=== PATIENT | female | born 1965 | race Two or more races ===

== ENCOUNTER 2017-09-07 21:20 | Emergency (ER) | payer MEDICAID ==
[~2017-09-07] VITALS: Ht 167.6 cm; Wt 86.2 kg
[2017-09-08 00:22] VITALS: BP 160/95
== END 2017-09-08 02:08 | disposition home or self-care (01) ==
LOC: ER 21:20
DX: K02.9 Dental caries, unspecified (principal)

== ENCOUNTER 2021-04-01 11:15 | Inpatient (IN) | payer MEDICAID ==
[~2021-04-01] VITALS: Ht 167.6 cm; Wt 5.0 kg
[2021-04-01] MEDS ORDERED: methylPREDNISolone SOD SUCC 125 MG/2 ML VL IV ONE (11:30)
[2021-04-01] MEDS ORDERED: NITROGLYCERIN 0.4 MG SL TAB SL PRN (12:15)
[2021-04-01] MEDS ORDERED: ACETAMINOPHEN 325 MG TAB PO PRN (12:15)
[2021-04-01] MEDS ORDERED: MORPHINE SULFATE 4 MG/ML SYR/VIAL IV PRN (12:15)
[2021-04-01] MEDS ORDERED: MORPHINE SULFATE INJECTION 2 MG/ML SYRG IV PRN (12:15)
[2021-04-01 12:18] LABS: Basophils # (auto) 0 10 ^3/uL (0-0.2); Basophils % (auto) 0.2 % (0.0-2.0); Eosinophils # (auto) 0 10 ^3/uL (0-0.8); Hematocrit 42.3 % (36.0-46.0); Hemoglobin 14.3 g/dL (12.2-16.2); Lymphocytes % (auto) 13.6 % (10.0-50.0); Mean Corpuscular Hemoglobin 29.3 pg (28.0-32.0); Mean Corpuscular Hgb Conc. 33.8 g/dL (32.0-36.0); Mean Corpuscular Volume 86.6 fL (80.0-100.0); Monocytes # (auto) 0.5 10 ^3/uL (0-1.3); Monocytes % (auto) 6.4 % (0.0-12.0); Neutrophils # (auto) 5.8 10 ^3/uL (1.6-8.6); Neutrophils % (auto) 79.8 % (37.0-80.0); Red Blood Cells 4.89 10^6/uL (4.0-5.20); Red Cell Distribution Width 14.5 % (11.8-14.3); White Blood Cell 7.2 10^3/uL (4.4-10.8)
[2021-04-01] MEDS ORDERED: ACETAMINOPHEN 325 MG TAB PO ONE (12:30)
[2021-04-01 12:43] LABS: Potassium 3.8 mmol/L (3.5-5.1)
[2021-04-01 12:53] LABS: Albumin 3.1 g/dL (3.4-5.0); BUN/Creatinine Ratio 16.1; Bilirubin, Total 0.5 mg/dL (0.2-1.0); CRP High Sensitivity 1.01 mg/dL (< 0.3); Total Protein 7.5 g/dL (6.4-8.2)
[2021-04-01] MEDS ORDERED: REMDESIVIR PER PHARMACY 0 ML IV SCH (15:15)
[2021-04-01 15:25] VITALS: BP 106/55
[2021-04-01] MEDS ORDERED: REMDESIVIR 200 MG in NS 210ml LOADING DOSE ADULT IV ONE (16:00)
[2021-04-01 16:29] LABS: Urine Bacteria FEW /hpf (None Seen); Urine Blood Negative /uL (Negative); Urine Hyaline Cast FEW /lpf (0 - 2); Urine Specific Gravity 1.013 (1.001-1.035); Urine WBC 4 /hpf (0 - 5)
[2021-04-01] MEDS: PIPERACILLIN-TAZOB 3.375GM 100 ML IV SCH (17:49)
[2021-04-01] MEDS: BUDESONIDE (INHALATION) 180 MCG IH IN SCH (19:37)
[2021-04-01] MEDS: HYDROcodone-ACET 5/325MG TAB PO PRN (20:01)
[2021-04-01] MEDS: ENOXAPARIN SOD 40 MG/0.4 ML SYRINGE SC SCH (22:00)
[2021-04-02] MEDS: PIPERACILLIN-TAZOB 3.375GM 100 ML IV SCH ×4 (06:00→18:54)
[2021-04-02] MEDS: ALBUTEROL SULF HFA 90MCG INH 200DOSE IN PRN (06:36)
[2021-04-02] MEDS: BUDESONIDE (INHALATION) 180 MCG IH IN SCH ×2 (06:37→22:21)
[2021-04-02 06:52] LABS: Basophils # (auto) 0 10 ^3/uL (0-0.2); Basophils % (auto) 0.1 % (0.0-2.0); Eosinophils # (auto) 0 10 ^3/uL (0-0.8); Hematocrit 41.8 % (36.0-46.0); Hemoglobin 14.5 g/dL (12.2-16.2); Lymphocytes # (auto) 0.7 10 ^3/uL (0.4-5.4); Lymphocytes % (auto) 11.7 % (10.0-50.0); Mean Corpuscular Hemoglobin 30.4 pg (28.0-32.0); Mean Corpuscular Hgb Conc. 34.8 g/dL (32.0-36.0); Mean Corpuscular Volume 87.3 fL (80.0-100.0); Monocytes # (auto) 0.4 10 ^3/uL (0-1.3); Monocytes % (auto) 7.3 % (0.0-12.0); Neutrophils # (auto) 4.7 10 ^3/uL (1.6-8.6); Neutrophils % (auto) 80.9 % (37.0-80.0); Red Blood Cells 4.78 10^6/uL (4.0-5.20); Red Cell Distribution Width 14.8 % (11.8-14.3); White Blood Cell 5.8 10^3/uL (4.4-10.8)
[2021-04-02 06:56] LABS: Albumin 2.8 g/dL (3.4-5.0); Calcium 8.7 mg/dL (8.5-10.1); Potassium 4.2 mmol/L (3.5-5.1)
[2021-04-02 07:00] LABS: BUN/Creatinine Ratio 20.8; Bilirubin, Total 0.4 mg/dL (0.2-1.0); Total Protein 7.3 g/dL (6.4-8.2)
[2021-04-02] MEDS: HYDROcodone-ACET 5/325MG TAB PO PRN ×2 (07:01→20:04)
[2021-04-02] MEDS ORDERED: ENOXAPARIN SOD 40 MG/0.4 ML SYRINGE SC SCH (10:00)
[2021-04-02] MEDS: ASCORBIC ACID 1,000 MG TAB PO SCH (11:06)
[2021-04-02] MEDS: CHOLECALCIFEROL (VITD3) 2,000 UNIT CAP/TAB PO SCH (11:06)
[2021-04-02] MEDS: AZITHROMYCIN 500MG/ 250ML 250 ML IV SCH (11:06)
[2021-04-02] MEDS: ZINC SULFATE 220mg CAP or TAB PO SCH (11:06)
[2021-04-02] MEDS: DexAMETHasone SOD PHOS 10MG/1ML VIAL INJ IV SCH (11:06)
[2021-04-02] MEDS: ENOXAPARIN SOD 40 MG/0.4 ML SYRINGE SC SCH ×2 (11:07→21:40)
[2021-04-02 12:00] VITALS: BP 113/72
[2021-04-02 14:01] VITALS: BP 113/72
[2021-04-02] MEDS ORDERED: METF-370 PO (14:29)
[2021-04-02] MEDS ORDERED: LEVO25TA6 PO (14:29)
[2021-04-02] MEDS ORDERED: AMLO-489 PO (14:29)
[2021-04-02] MEDS ORDERED: CHOL4POW4 PO (14:29)
[2021-04-02] MEDS ORDERED: PROP80CA40 PO (14:29)
[2021-04-02] MEDS: REMDESIVIR 100mg 100 MG in SODIUM CHL 0.9% 230 ML IV SCH (15:33)
[2021-04-02 16:00] VITALS: BP 113/69
[2021-04-02 20:00] VITALS: BP 122/75
[2021-04-02 21:00] VITALS: BP 122/75
[2021-04-03] MEDS: PIPERACILLIN-TAZOB 3.375GM 100 ML IV SCH ×4 (04:21→22:28)
[2021-04-03 05:00] VITALS: BP 119/75
[2021-04-03] MEDS: ALBUTEROL SULF HFA 90MCG INH 200DOSE IN PRN ×2 (07:25→23:14)
[2021-04-03] MEDS: BUDESONIDE (INHALATION) 180 MCG IH IN SCH ×2 (07:25→21:50)
[2021-04-03 09:00] VITALS: BP 122/75
[2021-04-03] MEDS: ZINC SULFATE 220mg CAP or TAB PO SCH (09:26)
[2021-04-03] MEDS: CHOLECALCIFEROL (VITD3) 2,000 UNIT CAP/TAB PO SCH (09:26)
[2021-04-03] MEDS: HYDROcodone-ACET 5/325MG TAB PO PRN ×2 (09:26→22:29)
[2021-04-03] MEDS: AZITHROMYCIN 500MG/ 250ML 250 ML IV SCH (09:26)
[2021-04-03] MEDS: ASCORBIC ACID 1,000 MG TAB PO SCH (09:26)
[2021-04-03] MEDS: DexAMETHasone SOD PHOS 10MG/1ML VIAL INJ IV SCH (09:27)
[2021-04-03] MEDS: ENOXAPARIN SOD 40 MG/0.4 ML SYRINGE SC SCH ×2 (09:27→22:28)
[2021-04-03 13:00] VITALS: BP 126/78
[2021-04-03] MEDS: PANTOPRAZOLE 40 MG/10 ML VIAL INJ IV SCH ×2 (14:27→22:28)
[2021-04-03] MEDS: REMDESIVIR 100mg 100 MG in SODIUM CHL 0.9% 230 ML IV SCH (16:20)
[2021-04-03 17:00] VITALS: BP 131/89
[2021-04-03 20:00] VITALS: BP 135/85
[2021-04-03 22:00] VITALS: BP 135/85
[2021-04-03] MEDS: DOCUSATE SOD 100 MG CAP PO SCH (22:28)
[2021-04-04] MEDS: PIPERACILLIN-TAZOB 3.375GM 100 ML IV SCH ×4 (04:14→21:21)
[2021-04-04 05:00] VITALS: BP 120/77
[2021-04-04 06:15] LABS: Basophils # (auto) 0 10 ^3/uL (0-0.2); Basophils % (auto) 0.3 % (0.0-2.0); Eosinophils # (auto) 0 10 ^3/uL (0-0.8); Hematocrit 40.8 % (36.0-46.0); Hemoglobin 13.8 g/dL (12.2-16.2); Mean Corpuscular Hemoglobin 29.4 pg (28.0-32.0); Mean Corpuscular Volume 86.6 fL (80.0-100.0); Monocytes # (auto) 0.5 10 ^3/uL (0-1.3); Monocytes % (auto) 10.9 % (0.0-12.0); Neutrophils # (auto) 3.4 10 ^3/uL (1.6-8.6); Neutrophils % (auto) 68.8 % (37.0-80.0); Red Blood Cells 4.71 10^6/uL (4.0-5.20); Red Cell Distribution Width 14.6 % (11.8-14.3); White Blood Cell 4.9 10^3/uL (4.4-10.8)
[2021-04-04 06:29] LABS: BUN/Creatinine Ratio 24.2; Calcium 8.4 mg/dL (8.5-10.1); Potassium 4.2 mmol/L (3.5-5.1)
[2021-04-04] MEDS: BUDESONIDE (INHALATION) 180 MCG IH IN SCH ×2 (07:12→20:32)
[2021-04-04] MEDS: ALBUTEROL SULF HFA 90MCG INH 200DOSE IN PRN ×2 (07:12→20:33)
[2021-04-04] MEDS: AZITHROMYCIN 500MG/ 250ML 250 ML IV SCH (07:58)
[2021-04-04] MEDS: ZINC SULFATE 220mg CAP or TAB PO SCH (08:53)
[2021-04-04] MEDS: DexAMETHasone SOD PHOS 10MG/1ML VIAL INJ IV SCH (08:53)
[2021-04-04] MEDS: PANTOPRAZOLE 40 MG/10 ML VIAL INJ IV SCH ×2 (08:53→21:21)
[2021-04-04] MEDS: DOCUSATE SOD 100 MG CAP PO SCH ×2 (08:56→21:21)
[2021-04-04] MEDS: ASCORBIC ACID 1,000 MG TAB PO SCH (08:56)
[2021-04-04] MEDS: CHOLECALCIFEROL (VITD3) 2,000 UNIT CAP/TAB PO SCH (08:56)
[2021-04-04] MEDS: ENOXAPARIN SOD 40 MG/0.4 ML SYRINGE SC SCH ×2 (08:56→21:21)
[2021-04-04] MEDS: HYDROcodone-ACET 5/325MG TAB PO PRN ×2 (08:57→20:13)
[2021-04-04 09:00] VITALS: BP 125/86
[2021-04-04] MEDS: ONDANSETRON HCL 4 MG/2 ML VIAL IV PRN (09:49)
[2021-04-04] MEDS ORDERED: FUROSEMIDE 40 MG/4 ML VIAL IV ONE (12:45)
[2021-04-04 13:00] VITALS: BP 133/87
[2021-04-04] MEDS: REMDESIVIR 100mg 100 MG in SODIUM CHL 0.9% 230 ML IV SCH (15:14)
[2021-04-04 17:00] VITALS: BP 117/83
[2021-04-04 21:55] VITALS: BP 134/88
[2021-04-04 22:10] VITALS: BP 134/88
[2021-04-05 01:15] VITALS: BP 134/88
[2021-04-05] MEDS: PIPERACILLIN-TAZOB 3.375GM 100 ML IV SCH ×5 (03:54→22:06)
[2021-04-05 04:44] VITALS: BP 127/86
[2021-04-05 06:49] LABS: Basophils # (auto) 0 10 ^3/uL (0-0.2); Basophils % (auto) 0.8 % (0.0-2.0); Eosinophils # (auto) 0 10 ^3/uL (0-0.8); Eosinophils % (auto) 0.2 % (0.0-7.0); Hematocrit 40.9 % (36.0-46.0); Lymphocytes # (auto) 1.7 10 ^3/uL (0.4-5.4); Lymphocytes % (auto) 29.1 % (10.0-50.0); Mean Corpuscular Hemoglobin 29.8 pg (28.0-32.0); Mean Corpuscular Hgb Conc. 34.2 g/dL (32.0-36.0); Monocytes # (auto) 0.5 10 ^3/uL (0-1.3); Monocytes % (auto) 8.4 % (0.0-12.0); Neutrophils # (auto) 3.6 10 ^3/uL (1.6-8.6); Neutrophils % (auto) 61.5 % (37.0-80.0); Nucleated Red Blood Cells % 0.2 %; Red Blood Cells 4.69 10^6/uL (4.0-5.20); Red Cell Distribution Width 14.3 % (11.8-14.3); White Blood Cell 5.8 10^3/uL (4.4-10.8)
[2021-04-05 06:56] LABS: Potassium 3.6 mmol/L (3.5-5.1)
[2021-04-05] MEDS: ALBUTEROL SULF HFA 90MCG INH 200DOSE IN PRN ×2 (07:01→19:31)
[2021-04-05] MEDS: BUDESONIDE (INHALATION) 180 MCG IH IN SCH ×2 (07:01→19:27)
[2021-04-05 07:04] LABS: Albumin 2.5 g/dL (3.4-5.0); BUN/Creatinine Ratio 20.3; Bilirubin, Total 0.4 mg/dL (0.2-1.0); Calcium 8.5 mg/dL (8.5-10.1); Total Protein 6.5 g/dL (6.4-8.2)
[2021-04-05 09:00] VITALS: BP 123/83
[2021-04-05] MEDS ORDERED: FUROSEMIDE 20 MG/2 ML VIAL IV ONE (09:00)
[2021-04-05] MEDS: DexAMETHasone SOD PHOS 10MG/1ML VIAL INJ IV SCH (11:30)
[2021-04-05] MEDS: PANTOPRAZOLE 40 MG/10 ML VIAL INJ IV SCH ×2 (11:30→22:06)
[2021-04-05] MEDS: amLODIPine BESYLATE 5 MG TAB PO SCH (11:31)
[2021-04-05] MEDS: DOCUSATE SOD 100 MG CAP PO SCH ×2 (11:31→22:00)
[2021-04-05] MEDS: ZINC SULFATE 220mg CAP or TAB PO SCH (11:31)
[2021-04-05] MEDS: LORATADINE 10 MG TAB PO SCH (11:31)
[2021-04-05] MEDS: ASCORBIC ACID 1,000 MG TAB PO SCH (11:31)
[2021-04-05] MEDS: AZITHROMYCIN 500MG/ 250ML 250 ML IV SCH (11:31)
[2021-04-05] MEDS: ENOXAPARIN SOD 40 MG/0.4 ML SYRINGE SC SCH ×2 (11:32→22:09)
[2021-04-05] MEDS: CHOLECALCIFEROL (VITD3) 2,000 UNIT CAP/TAB PO SCH (11:32)
[2021-04-05] MEDS: ALPRAZolam 0.25 MG TAB PO PRN (11:35)
[2021-04-05 13:00] VITALS: BP 124/84
[2021-04-05] MEDS: ONDANSETRON HCL 4 MG/2 ML VIAL IV PRN ×2 (14:14→20:37)
[2021-04-05 17:00] VITALS: BP 115/75
[2021-04-05] MEDS: REMDESIVIR 100mg 100 MG in SODIUM CHL 0.9% 230 ML IV SCH (17:36)
[2021-04-05] MEDS: HYDROcodone-ACET 5/325MG TAB PO PRN (20:36)
[2021-04-05 22:00] VITALS: BP 121/81
[2021-04-05] MEDS: TEMAZEPAM 15 MG CAP PO PRN (22:05)
[2021-04-05] MEDS ORDERED: DEXTROSE (50%) 50ML SYRG IV PRN (22:30)
[2021-04-05] MEDS ORDERED: InsuLIN REG 1unit/0.01ml Soln (100units/ml) SC ONE (22:45)
[2021-04-06] MEDS: ALPRAZolam 0.25 MG TAB PO PRN ×2 (01:00→22:00)
[2021-04-06] MEDS: PIPERACILLIN-TAZOB 3.375GM 100 ML IV SCH ×4 (04:27→21:23)
[2021-04-06 05:00] VITALS: BP 134/93
[2021-04-06] MEDS: ACCU-CHEK COMFORT CURVE STRIP VI SCH ×4 (06:40→21:15)
[2021-04-06] MEDS: InsuLIN REG 1unit/0.01ml Soln (100units/ml) SC SCH ×4 (06:43→21:26)
[2021-04-06 09:00] VITALS: BP 128/87
[2021-04-06] MEDS: BUDESONIDE (INHALATION) 180 MCG IH IN SCH ×2 (09:27→22:30)
[2021-04-06] MEDS: ALBUTEROL SULF HFA 90MCG INH 200DOSE IN PRN ×2 (09:27→22:30)
[2021-04-06] MEDS: AZITHROMYCIN 500MG/ 250ML 250 ML IV SCH (09:40)
[2021-04-06] MEDS: DexAMETHasone SOD PHOS 10MG/1ML VIAL INJ IV SCH (09:40)
[2021-04-06] MEDS: ENOXAPARIN SOD 40 MG/0.4 ML SYRINGE SC SCH ×2 (09:41→21:23)
[2021-04-06] MEDS: LORATADINE 10 MG TAB PO SCH (09:41)
[2021-04-06] MEDS: ASCORBIC ACID 1,000 MG TAB PO SCH (09:41)
[2021-04-06] MEDS: CHOLECALCIFEROL (VITD3) 2,000 UNIT CAP/TAB PO SCH (09:41)
[2021-04-06] MEDS: PANTOPRAZOLE 40 MG/10 ML VIAL INJ IV SCH ×2 (09:41→21:23)
[2021-04-06] MEDS: ZINC SULFATE 220mg CAP or TAB PO SCH (09:41)
[2021-04-06] MEDS: DOCUSATE SOD 100 MG CAP PO SCH ×2 (09:42→21:22)
[2021-04-06] MEDS: amLODIPine BESYLATE 5 MG TAB PO SCH (09:42)
[2021-04-06] MEDS: HYDROcodone-ACET 5/325MG TAB PO PRN (11:55)
[2021-04-06] MEDS: ONDANSETRON HCL 4 MG/2 ML VIAL IV PRN (11:56)
[2021-04-06 13:30] VITALS: BP 127/81
[2021-04-06 17:18] VITALS: BP 130/85
[2021-04-06 22:21] VITALS: BP 122/80
[2021-04-07] MEDS: PIPERACILLIN-TAZOB 3.375GM 100 ML IV SCH ×4 (04:02→21:42)
[2021-04-07 05:25] VITALS: BP 130/94
[2021-04-07] MEDS: ACCU-CHEK COMFORT CURVE STRIP VI SCH ×4 (06:05→21:33)
[2021-04-07] MEDS: InsuLIN REG 1unit/0.01ml Soln (100units/ml) SC SCH ×4 (06:06→21:46)
[2021-04-07] MEDS: ONDANSETRON HCL 4 MG/2 ML VIAL IV PRN ×2 (06:59→21:42)
[2021-04-07] MEDS: HYDROcodone-ACET 5/325MG TAB PO PRN ×2 (06:59→21:42)
[2021-04-07] MEDS: BUDESONIDE (INHALATION) 180 MCG IH IN SCH ×2 (08:10→20:45)
[2021-04-07] MEDS: ALBUTEROL SULF HFA 90MCG INH 200DOSE IN PRN ×2 (08:10→21:13)
[2021-04-07 09:00] VITALS: BP 137/77
[2021-04-07] MEDS: DexAMETHasone SOD PHOS 10MG/1ML VIAL INJ IV SCH (09:19)
[2021-04-07] MEDS: PANTOPRAZOLE 40 MG/10 ML VIAL INJ IV SCH ×2 (09:20→21:41)
[2021-04-07] MEDS: DOCUSATE SOD 100 MG CAP PO SCH ×2 (09:20→21:42)
[2021-04-07] MEDS: ZINC SULFATE 220mg CAP or TAB PO SCH (09:20)
[2021-04-07] MEDS: LORATADINE 10 MG TAB PO SCH (09:20)
[2021-04-07] MEDS: ASCORBIC ACID 1,000 MG TAB PO SCH (09:21)
[2021-04-07] MEDS: CHOLECALCIFEROL (VITD3) 2,000 UNIT CAP/TAB PO SCH (09:21)
[2021-04-07] MEDS: amLODIPine BESYLATE 5 MG TAB PO SCH (09:21)
[2021-04-07] MEDS: ENOXAPARIN SOD 40 MG/0.4 ML SYRINGE SC SCH ×2 (09:21→21:42)
[2021-04-07 13:00] VITALS: BP 134/82
[2021-04-07] MEDS: ALPRAZolam 0.25 MG TAB PO PRN (15:18)
[2021-04-07 17:00] VITALS: BP 124/75
[2021-04-07] MEDS: SALINE 0.65 % NASAL SPRAY 45ML BOTTLE EACHNOSTRI SCH ×2 (17:39→21:41)
[2021-04-07 22:00] VITALS: BP 130/76
[2021-04-08 00:25] VITALS: BP 124/75
[2021-04-08] MEDS: TEMAZEPAM 15 MG CAP PO PRN (00:34)
[2021-04-08] MEDS: PIPERACILLIN-TAZOB 3.375GM 100 ML IV SCH ×4 (04:10→21:30)
[2021-04-08 05:00] VITALS: BP 135/94
[2021-04-08 06:10] LABS: Basophils # (auto) 0 10 ^3/uL (0-0.2); Basophils % (auto) 0.4 % (0.0-2.0); Eosinophils # (auto) 0 10 ^3/uL (0-0.8); Eosinophils % (auto) 0.6 % (0.0-7.0); Hematocrit 43.3 % (36.0-46.0); Hemoglobin 15.1 g/dL (12.2-16.2); Lymphocytes # (auto) 1.6 10 ^3/uL (0.4-5.4); Lymphocytes % (auto) 22.2 % (10.0-50.0); Mean Corpuscular Hemoglobin 29.8 pg (28.0-32.0); Mean Corpuscular Hgb Conc. 34.8 g/dL (32.0-36.0); Mean Corpuscular Volume 85.9 fL (80.0-100.0); Monocytes # (auto) 0.6 10 ^3/uL (0-1.3); Monocytes % (auto) 8.8 % (0.0-12.0); Nucleated Red Blood Cells % 0.1 %; Red Blood Cells 5.04 10^6/uL (4.0-5.20); Red Cell Distribution Width 14.4 % (11.8-14.3); White Blood Cell 7.3 10^3/uL (4.4-10.8)
[2021-04-08 06:24] LABS: Albumin 2.9 g/dL (3.4-5.0); Calcium 8.9 mg/dL (8.5-10.1); Potassium 3.6 mmol/L (3.5-5.1)
[2021-04-08] MEDS: SALINE 0.65 % NASAL SPRAY 45ML BOTTLE EACHNOSTRI SCH ×4 (06:28→21:33)
[2021-04-08] MEDS: ACCU-CHEK COMFORT CURVE STRIP VI SCH ×4 (06:29→21:32)
[2021-04-08 06:30] LABS: BUN/Creatinine Ratio 16.4; Bilirubin, Total 0.4 mg/dL (0.2-1.0); CRP High Sensitivity 0.13 mg/dL (< 0.3); Total Protein 7.3 g/dL (6.4-8.2)
[2021-04-08] MEDS: InsuLIN REG 1unit/0.01ml Soln (100units/ml) SC SCH ×4 (06:31→22:01)
[2021-04-08] MEDS: ALPRAZolam 0.25 MG TAB PO PRN (06:32)
[2021-04-08] MEDS: ALBUTEROL SULF HFA 90MCG INH 200DOSE IN PRN (07:27)
[2021-04-08] MEDS: BUDESONIDE (INHALATION) 180 MCG IH IN SCH ×2 (07:27→22:00)
[2021-04-08 09:00] VITALS: BP 101/79
[2021-04-08] MEDS: DexAMETHasone SOD PHOS 10MG/1ML VIAL INJ IV SCH (09:52)
[2021-04-08] MEDS: PANTOPRAZOLE 40 MG/10 ML VIAL INJ IV SCH ×2 (09:53→21:30)
[2021-04-08] MEDS: ZINC SULFATE 220mg CAP or TAB PO SCH (09:53)
[2021-04-08] MEDS: LORATADINE 10 MG TAB PO SCH (09:53)
[2021-04-08] MEDS: DOCUSATE SOD 100 MG CAP PO SCH ×2 (09:53→21:30)
[2021-04-08] MEDS: amLODIPine BESYLATE 5 MG TAB PO SCH (09:53)
[2021-04-08] MEDS: CHOLECALCIFEROL (VITD3) 2,000 UNIT CAP/TAB PO SCH (09:54)
[2021-04-08] MEDS: ENOXAPARIN SOD 40 MG/0.4 ML SYRINGE SC SCH ×2 (09:54→21:31)
[2021-04-08] MEDS: ASCORBIC ACID 1,000 MG TAB PO SCH (09:54)
[2021-04-08 13:00] VITALS: BP 116/80
[2021-04-08 17:00] VITALS: BP 125/87
[2021-04-08] MEDS: HYDROcodone-ACET 5/325MG TAB PO PRN (20:24)
[2021-04-08] MEDS: ONDANSETRON HCL 4 MG/2 ML VIAL IV PRN (20:24)
[2021-04-08 22:00] VITALS: BP 128/85
[2021-04-09] MEDS: ALPRAZolam 0.25 MG TAB PO PRN (01:25)
[2021-04-09] MEDS: PIPERACILLIN-TAZOB 3.375GM 100 ML IV SCH ×4 (03:51→21:12)
[2021-04-09] MEDS: HYDROcodone-ACET 5/325MG TAB PO PRN (04:01)
[2021-04-09] MEDS: ONDANSETRON HCL 4 MG/2 ML VIAL IV PRN (04:01)
[2021-04-09 05:00] VITALS: BP 130/92
[2021-04-09] MEDS: InsuLIN REG 1unit/0.01ml Soln (100units/ml) SC SCH ×4 (06:11→21:29)
[2021-04-09] MEDS: SALINE 0.65 % NASAL SPRAY 45ML BOTTLE EACHNOSTRI SCH ×4 (06:11→21:11)
[2021-04-09] MEDS: ACCU-CHEK COMFORT CURVE STRIP VI SCH ×4 (06:11→21:11)
[2021-04-09 08:00] VITALS: BP 131/86
[2021-04-09 09:00] VITALS: BP 131/86
[2021-04-09] MEDS: PANTOPRAZOLE 40 MG/10 ML VIAL INJ IV SCH ×2 (10:05→21:11)
[2021-04-09] MEDS: CHOLECALCIFEROL (VITD3) 2,000 UNIT CAP/TAB PO SCH (10:06)
[2021-04-09] MEDS: DOCUSATE SOD 100 MG CAP PO SCH ×2 (10:06→21:11)
[2021-04-09] MEDS: ENOXAPARIN SOD 40 MG/0.4 ML SYRINGE SC SCH ×2 (10:06→21:11)
[2021-04-09] MEDS: amLODIPine BESYLATE 5 MG TAB PO SCH (10:07)
[2021-04-09] MEDS: ASCORBIC ACID 1,000 MG TAB PO SCH (10:07)
[2021-04-09] MEDS: LORATADINE 10 MG TAB PO SCH (10:07)
[2021-04-09] MEDS: ZINC SULFATE 220mg CAP or TAB PO SCH (10:07)
[2021-04-09] MEDS: DexAMETHasone SOD PHOS 10MG/1ML VIAL INJ IV SCH (10:31)
[2021-04-09] MEDS: ALBUTEROL SULF HFA 90MCG INH 200DOSE IN PRN ×2 (10:59→20:39)
[2021-04-09] MEDS: BUDESONIDE (INHALATION) 180 MCG IH IN SCH ×2 (10:59→20:38)
[2021-04-09 12:00] LABS: Basophils # (auto) 0 10 ^3/uL (0-0.2); Basophils % (auto) 0.4 % (0.0-2.0); Eosinophils # (auto) 0.1 10 ^3/uL (0-0.8); Eosinophils % (auto) 1.4 % (0.0-7.0); Hematocrit 43.1 % (36.0-46.0); Hemoglobin 14.9 g/dL (12.2-16.2); Lymphocytes # (auto) 1.4 10 ^3/uL (0.4-5.4); Lymphocytes % (auto) 17.5 % (10.0-50.0); Mean Corpuscular Hemoglobin 29.6 pg (28.0-32.0); Mean Corpuscular Hgb Conc. 34.4 g/dL (32.0-36.0); Mean Corpuscular Volume 85.9 fL (80.0-100.0); Monocytes # (auto) 0.7 10 ^3/uL (0-1.3); Neutrophils # (auto) 5.8 10 ^3/uL (1.6-8.6); Neutrophils % (auto) 71.7 % (37.0-80.0); Nucleated Red Blood Cells % 0.2 %; Red Blood Cells 5.02 10^6/uL (4.0-5.20); Red Cell Distribution Width 14.5 % (11.8-14.3); White Blood Cell 8.1 10^3/uL (4.4-10.8)
[2021-04-09 12:26] LABS: Albumin 2.9 g/dL (3.4-5.0); Calcium 8.9 mg/dL (8.5-10.1); Magnesium 2.4 mg/dL (1.6-2.6); Potassium 3.6 mmol/L (3.5-5.1)
[2021-04-09 12:31] LABS: BUN/Creatinine Ratio 13.5; Bilirubin, Total 0.6 mg/dL (0.2-1.0); CRP High Sensitivity 0.09 mg/dL (< 0.3); Total Protein 7.2 g/dL (6.4-8.2)
[2021-04-09 13:00] VITALS: BP 129/82
[2021-04-09 17:00] VITALS: BP 130/88
[2021-04-09] MEDS: PSEUDOEPHEDRINE HCL 30 MG TAB PO PRN ×2 (17:04→21:13)
[2021-04-09 22:00] VITALS: BP 133/80
[2021-04-10] MEDS: ONDANSETRON HCL 4 MG/2 ML VIAL IV PRN ×2 (01:13→22:31)
[2021-04-10] MEDS: HYDROcodone-ACET 5/325MG TAB PO PRN ×2 (01:13→21:27)
[2021-04-10] MEDS: ALPRAZolam 0.25 MG TAB PO PRN ×2 (02:13→13:55)
[2021-04-10] MEDS: PSEUDOEPHEDRINE HCL 30 MG TAB PO PRN ×3 (02:22→21:49)
[2021-04-10] MEDS: PIPERACILLIN-TAZOB 3.375GM 100 ML IV SCH ×4 (04:18→21:29)
[2021-04-10 05:00] VITALS: BP 137/94
[2021-04-10] MEDS: SALINE 0.65 % NASAL SPRAY 45ML BOTTLE EACHNOSTRI SCH ×4 (06:10→21:27)
[2021-04-10] MEDS: InsuLIN REG 1unit/0.01ml Soln (100units/ml) SC SCH ×4 (06:10→21:31)
[2021-04-10] MEDS: ACCU-CHEK COMFORT CURVE STRIP VI SCH ×4 (06:10→21:31)
[2021-04-10 08:00] VITALS: BP 150/107
[2021-04-10 09:00] VITALS: BP 150/107
[2021-04-10] MEDS: DexAMETHasone SOD PHOS 10MG/1ML VIAL INJ IV SCH (09:42)
[2021-04-10] MEDS: ZINC SULFATE 220mg CAP or TAB PO SCH (09:43)
[2021-04-10] MEDS: DOCUSATE SOD 100 MG CAP PO SCH ×2 (09:43→21:26)
[2021-04-10] MEDS: PANTOPRAZOLE 40 MG/10 ML VIAL INJ IV SCH ×2 (09:43→21:26)
[2021-04-10] MEDS: METOPROLOL TARTRATE 25 MG TAB PO SCH ×2 (09:44→21:29)
[2021-04-10] MEDS: amLODIPine BESYLATE 5 MG TAB PO SCH (09:45)
[2021-04-10] MEDS: ASCORBIC ACID 1,000 MG TAB PO SCH (09:45)
[2021-04-10] MEDS: CHOLECALCIFEROL (VITD3) 2,000 UNIT CAP/TAB PO SCH (09:45)
[2021-04-10] MEDS: ENOXAPARIN SOD 40 MG/0.4 ML SYRINGE SC SCH ×2 (09:45→21:28)
[2021-04-10 13:00] VITALS: BP 121/82
[2021-04-10 22:00] VITALS: BP 126/75
[2021-04-10] MEDS: BUDESONIDE (INHALATION) 180 MCG IH IN SCH (22:18)
[2021-04-11] VITALS (7 sets, daily range): BP systolic 114–127; BP diastolic 72–92
[2021-04-11] MEDS: PIPERACILLIN-TAZOB 3.375GM 100 ML IV SCH ×4 (04:25→21:26)
[2021-04-11] MEDS: SALINE 0.65 % NASAL SPRAY 45ML BOTTLE EACHNOSTRI SCH ×4 (05:44→21:26)
[2021-04-11] MEDS: PSEUDOEPHEDRINE HCL 30 MG TAB PO PRN ×3 (05:45→16:44)
[2021-04-11] MEDS: BUDESONIDE (INHALATION) 180 MCG IH IN SCH ×2 (05:56→22:07)
[2021-04-11] MEDS: InsuLIN REG 1unit/0.01ml Soln (100units/ml) SC SCH ×4 (06:25→21:30)
[2021-04-11] MEDS: ACCU-CHEK COMFORT CURVE STRIP VI SCH ×4 (06:26→21:29)
[2021-04-11] MEDS: PANTOPRAZOLE 40 MG/10 ML VIAL INJ IV SCH ×2 (10:22→21:26)
[2021-04-11] MEDS: ZINC SULFATE 220mg CAP or TAB PO SCH (10:22)
[2021-04-11] MEDS: DexAMETHasone SOD PHOS 10MG/1ML VIAL INJ IV SCH (10:22)
[2021-04-11] MEDS: DOCUSATE SOD 100 MG CAP PO SCH ×2 (10:23→21:27)
[2021-04-11] MEDS: METOPROLOL TARTRATE 25 MG TAB PO SCH ×2 (10:23→21:27)
[2021-04-11] MEDS: ENOXAPARIN SOD 40 MG/0.4 ML SYRINGE SC SCH ×2 (10:24→21:28)
[2021-04-11] MEDS: ASCORBIC ACID 1,000 MG TAB PO SCH (10:24)
[2021-04-11] MEDS: CHOLECALCIFEROL (VITD3) 2,000 UNIT CAP/TAB PO SCH (10:24)
[2021-04-11] MEDS: amLODIPine BESYLATE 5 MG TAB PO SCH (10:24)
[2021-04-11] MEDS: HYDROcodone-ACET 5/325MG TAB PO PRN ×2 (15:58→22:07)
[2021-04-11] MEDS: ONDANSETRON HCL 4 MG/2 ML VIAL IV PRN ×2 (16:07→22:06)
[2021-04-12] MEDS: PSEUDOEPHEDRINE HCL 30 MG TAB PO PRN ×2 (02:33→15:31)
[2021-04-12] MEDS: PIPERACILLIN-TAZOB 3.375GM 100 ML IV SCH ×4 (04:03→21:37)
[2021-04-12 05:00] VITALS: BP 127/89
[2021-04-12] MEDS: SALINE 0.65 % NASAL SPRAY 45ML BOTTLE EACHNOSTRI SCH ×4 (05:34→21:51)
[2021-04-12] MEDS: InsuLIN REG 1unit/0.01ml Soln (100units/ml) SC SCH ×5 (06:19→21:50)
[2021-04-12] MEDS: ACCU-CHEK COMFORT CURVE STRIP VI SCH ×4 (06:19→21:38)
[2021-04-12 08:00] VITALS: BP 138/95
[2021-04-12 09:00] VITALS: BP 138/95
[2021-04-12] MEDS: BUDESONIDE (INHALATION) 180 MCG IH IN SCH ×2 (09:27→21:28)
[2021-04-12] MEDS: DexAMETHasone SOD PHOS 10MG/1ML VIAL INJ IV SCH (09:33)
[2021-04-12] MEDS: PANTOPRAZOLE 40 MG/10 ML VIAL INJ IV SCH ×2 (09:33→21:32)
[2021-04-12] MEDS: ZINC SULFATE 220mg CAP or TAB PO SCH (09:33)
[2021-04-12] MEDS: METOPROLOL TARTRATE 25 MG TAB PO SCH ×2 (09:34→21:34)
[2021-04-12] MEDS: DOCUSATE SOD 100 MG CAP PO SCH ×2 (09:34→21:33)
[2021-04-12] MEDS: amLODIPine BESYLATE 5 MG TAB PO SCH (09:34)
[2021-04-12] MEDS: ENOXAPARIN SOD 40 MG/0.4 ML SYRINGE SC SCH ×2 (09:35→21:33)
[2021-04-12] MEDS: CHOLECALCIFEROL (VITD3) 2,000 UNIT CAP/TAB PO SCH (09:35)
[2021-04-12] MEDS: ASCORBIC ACID 1,000 MG TAB PO SCH (09:35)
[2021-04-12 10:44] LABS: Basophils # (auto) 0.1 10 ^3/uL (0-0.2); Basophils % (auto) 0.8 % (0.0-2.0); Eosinophils # (auto) 0.1 10 ^3/uL (0-0.8); Eosinophils % (auto) 1.3 % (0.0-7.0); Hematocrit 43.9 % (36.0-46.0); Hemoglobin 14.8 g/dL (12.2-16.2); Lymphocytes # (auto) 1.7 10 ^3/uL (0.4-5.4); Lymphocytes % (auto) 24.7 % (10.0-50.0); Mean Corpuscular Hemoglobin 29.7 pg (28.0-32.0); Mean Corpuscular Hgb Conc. 33.7 g/dL (32.0-36.0); Mean Corpuscular Volume 88.1 fL (80.0-100.0); Monocytes # (auto) 0.6 10 ^3/uL (0-1.3); Monocytes % (auto) 8.4 % (0.0-12.0); Neutrophils # (auto) 4.5 10 ^3/uL (1.6-8.6); Neutrophils % (auto) 64.8 % (37.0-80.0); Nucleated Red Blood Cells % 0.1 %; Red Blood Cells 4.98 10^6/uL (4.0-5.20); Red Cell Distribution Width 14.3 % (11.8-14.3)
[2021-04-12 11:23] LABS: Potassium 3.9 mmol/L (3.5-5.1)
[2021-04-12 11:37] LABS: Albumin 3.1 g/dL (3.4-5.0); BUN/Creatinine Ratio 13.3; Bilirubin, Total 0.6 mg/dL (0.2-1.0); Calcium 9.1 mg/dL (8.5-10.1); Magnesium 2.4 mg/dL (1.6-2.6); Total Protein 7.3 g/dL (6.4-8.2)
[2021-04-12 11:59] LABS: CRP High Sensitivity 0.208 mg/dL (< 0.3)
[2021-04-12 12:17] VITALS: BP 130/84
[2021-04-12 17:27] VITALS: BP 131/79
[2021-04-12] MEDS: HYDROcodone-ACET 5/325MG TAB PO PRN (21:34)
[2021-04-12] MEDS: ONDANSETRON HCL 4 MG/2 ML VIAL IV PRN (21:53)
[2021-04-13] VITALS (7 sets, daily range): BP systolic 118–141; BP diastolic 73–96
[2021-04-13] MEDS: PSEUDOEPHEDRINE HCL 30 MG TAB PO PRN ×2 (01:41→16:05)
[2021-04-13] MEDS: PIPERACILLIN-TAZOB 3.375GM 100 ML IV SCH ×4 (04:11→21:50)
[2021-04-13] MEDS: ALPRAZolam 0.25 MG TAB PO PRN (04:23)
[2021-04-13] MEDS: ACCU-CHEK COMFORT CURVE STRIP VI SCH ×4 (06:15→21:51)
[2021-04-13] MEDS: InsuLIN REG 1unit/0.01ml Soln (100units/ml) SC SCH ×4 (06:15→21:52)
[2021-04-13] MEDS: SALINE 0.65 % NASAL SPRAY 45ML BOTTLE EACHNOSTRI SCH ×4 (06:15→21:49)
[2021-04-13] MEDS: BUDESONIDE (INHALATION) 180 MCG IH IN SCH ×2 (06:16→20:04)
[2021-04-13] MEDS: DexAMETHasone SOD PHOS 10MG/1ML VIAL INJ IV SCH (09:02)
[2021-04-13] MEDS: PANTOPRAZOLE 40 MG/10 ML VIAL INJ IV SCH ×2 (09:02→21:49)
[2021-04-13] MEDS: ZINC SULFATE 220mg CAP or TAB PO SCH (09:02)
[2021-04-13] MEDS: DOCUSATE SOD 100 MG CAP PO SCH ×2 (09:02→21:50)
[2021-04-13] MEDS: METOPROLOL TARTRATE 25 MG TAB PO SCH ×2 (09:03→21:51)
[2021-04-13] MEDS: amLODIPine BESYLATE 5 MG TAB PO SCH (09:04)
[2021-04-13] MEDS: CHOLECALCIFEROL (VITD3) 2,000 UNIT CAP/TAB PO SCH (09:04)
[2021-04-13] MEDS: ASCORBIC ACID 1,000 MG TAB PO SCH (09:04)
[2021-04-13] MEDS: HYDROcodone-ACET 5/325MG TAB PO PRN (10:12)
[2021-04-14] MEDS: ALPRAZolam 0.25 MG TAB PO PRN (00:02)
[2021-04-14] MEDS: PIPERACILLIN-TAZOB 3.375GM 100 ML IV SCH ×2 (04:32→10:52)
[2021-04-14 04:39] VITALS: BP 129/80
[2021-04-14] MEDS: PSEUDOEPHEDRINE HCL 30 MG TAB PO PRN ×2 (05:58→13:15)
[2021-04-14] MEDS: SALINE 0.65 % NASAL SPRAY 45ML BOTTLE EACHNOSTRI SCH ×4 (06:05→21:33)
[2021-04-14] MEDS: ACCU-CHEK COMFORT CURVE STRIP VI SCH ×4 (06:06→21:26)
[2021-04-14] MEDS: InsuLIN REG 1unit/0.01ml Soln (100units/ml) SC SCH ×4 (06:06→21:27)
[2021-04-14 07:50] VITALS: BP 125/77
[2021-04-14] MEDS: BUDESONIDE (INHALATION) 180 MCG IH IN SCH ×2 (09:09→22:31)
[2021-04-14] MEDS: DexAMETHasone SOD PHOS 10MG/1ML VIAL INJ IV SCH (10:52)
[2021-04-14] MEDS: PANTOPRAZOLE 40 MG/10 ML VIAL INJ IV SCH ×2 (10:52→21:33)
[2021-04-14] MEDS: METOPROLOL TARTRATE 25 MG TAB PO SCH ×2 (10:53→21:32)
[2021-04-14] MEDS: DOCUSATE SOD 100 MG CAP PO SCH ×2 (10:53→21:32)
[2021-04-14] MEDS: ZINC SULFATE 220mg CAP or TAB PO SCH (10:53)
[2021-04-14] MEDS: CHOLECALCIFEROL (VITD3) 2,000 UNIT CAP/TAB PO SCH (10:54)
[2021-04-14] MEDS: amLODIPine BESYLATE 5 MG TAB PO SCH (10:54)
[2021-04-14 11:46] VITALS: BP 137/92
[2021-04-14] MEDS: ASCORBIC ACID 1,000 MG TAB PO SCH (12:21)
[2021-04-14 16:20] VITALS: BP 127/80
[2021-04-14] MEDS: HYDROcodone-ACET 5/325MG TAB PO PRN (21:33)
[2021-04-14] MEDS: ONDANSETRON HCL 4 MG/2 ML VIAL IV PRN (21:43)
[2021-04-14 22:00] VITALS: BP 134/89
[2021-04-15] MEDS: ALPRAZolam 0.25 MG TAB PO PRN (03:54)
[2021-04-15 05:17] VITALS: BP 127/81
[2021-04-15] MEDS: SALINE 0.65 % NASAL SPRAY 45ML BOTTLE EACHNOSTRI SCH ×3 (06:10→17:08)
[2021-04-15] MEDS: ACCU-CHEK COMFORT CURVE STRIP VI SCH ×3 (06:10→17:07)
[2021-04-15] MEDS: InsuLIN REG 1unit/0.01ml Soln (100units/ml) SC SCH ×3 (06:14→17:08)
[2021-04-15] MEDS: BUDESONIDE (INHALATION) 180 MCG IH IN SCH (06:22)
[2021-04-15] MEDS: DexAMETHasone SOD PHOS 10MG/1ML VIAL INJ IV SCH (08:18)
[2021-04-15] MEDS: PANTOPRAZOLE 40 MG/10 ML VIAL INJ IV SCH (08:18)
[2021-04-15] MEDS: ZINC SULFATE 220mg CAP or TAB PO SCH (08:19)
[2021-04-15] MEDS: DOCUSATE SOD 100 MG CAP PO SCH (08:19)
[2021-04-15] MEDS: METOPROLOL TARTRATE 25 MG TAB PO SCH (08:20)
[2021-04-15] MEDS: ASCORBIC ACID 1,000 MG TAB PO SCH (08:21)
[2021-04-15] MEDS: CHOLECALCIFEROL (VITD3) 2,000 UNIT CAP/TAB PO SCH (08:21)
[2021-04-15] MEDS: PSEUDOEPHEDRINE HCL 30 MG TAB PO PRN (08:22)
[2021-04-15] MEDS: amLODIPine BESYLATE 5 MG TAB PO SCH (08:37)
[2021-04-15 09:07] VITALS: BP 137/91
[2021-04-15] MEDS ORDERED: METOPROLOL TARTRATE 25 MG TAB PO ONE (11:45)
[2021-04-15 13:14] VITALS: BP 136/85
[2021-04-15 16:40] VITALS: BP 124/89
[2021-04-15] MEDS ORDERED: METOPROLOL TARTRATE 50 MG TAB PO SCH (22:00)
== END 2021-04-15 20:15 | disposition home or self-care (01) | DRG 137 ==
LOC: ER 11:15 → TELE 12:14 → TELE-EAST 04-02 11:00
PROVIDERS: ADMIT Internal Medicine; ATTEND Internal Medicine
PROC: XW033E5 Introduction of Remdesivir Anti-infective into Peripheral Vein, Percutaneous Approach, New Technology Group 5 (ICD-10-PCS; principal; 2021-04-01)
DX: U07.1 COVID-19 (principal); J96.01 Acute respiratory failure with hypoxia; J12.82 Pneumonia due to coronavirus disease 2019; E11.40 Type 2 diabetes mellitus with diabetic neuropathy, unspecified; I10 Essential (primary) hypertension; E03.9 Hypothyroidism, unspecified; E78.5 Hyperlipidemia, unspecified; E11.65 Type 2 diabetes mellitus with hyperglycemia; Z90.710 Acquired absence of both cervix and uterus
CPT/HCPCS: 36415; 36600; 71045; 80048; 80053; 81001; 82728; 82805; 82962; 83605; 83735; 84100; 85025; 85379; 86141; 87040; 87426; 93005; 94640; 96365; 96375; 97110; 97116; 97163; 97530; 99291; C9113; G0378; J1100; J1815; J2405; J2543

== ENCOUNTER 2022-07-14 10:47 | Inpatient (IN) | payer MEDICAID ==
[~2022-07-14] VITALS: Ht 167.6 cm; Wt 174.0 kg
[~2022-07-14 10:47] MED LIST: AMLO-489 PO; CHOL4POW4 PO; LEVO25TA6 PO; METF-370 PO; PROP80CA40 PO
[2022-07-14] MEDS ORDERED: SODIUM CHLORIDE 0.9% 1,000 ML IVB ONE (11:15)
[2022-07-14] MEDS ORDERED: KETOROLAC TROMETH 30 MG/ML 1ML VIAL IV ONE (11:15)
[2022-07-14] MEDS ORDERED: ONDANSETRON HCL 4 MG/2 ML VIAL IV ONE (11:15)
[2022-07-14 11:21] LABS: Basophils # (auto) 0 10 ^3/uL (0-0.2); Basophils % (auto) 0.7 % (0.0-2.0); Eosinophils # (auto) 0.1 10 ^3/uL (0-0.8); Eosinophils % (auto) 1.6 % (0.0-7.0); Hematocrit 45.6 % (36.0-46.0); Hemoglobin 15.4 g/dL (12.2-16.2); Lymphocytes # (auto) 1.9 10 ^3/uL (0.4-5.4); Lymphocytes % (auto) 36.1 % (10.0-50.0); Mean Corpuscular Hemoglobin 28.7 pg (28.0-32.0); Mean Corpuscular Hgb Conc. 33.9 g/dL (32.0-36.0); Mean Corpuscular Volume 84.8 fL (80.0-100.0); Monocytes # (auto) 0.4 10 ^3/uL (0-1.3); Neutrophils # (auto) 2.9 10 ^3/uL (1.6-8.6); Neutrophils % (auto) 54.6 % (37.0-80.0); Nucleated Red Blood Cells % 0.1 %; Red Blood Cells 5.37 10^6/uL (4.0-5.20); Red Cell Distribution Width 14.6 % (11.8-14.3); White Blood Cell 5.3 10^3/uL (4.4-10.8)
[2022-07-14 11:41] LABS: Potassium 4.2 mmol/L (3.5-5.1); Sodium 140 mmol/L (136-145)
[2022-07-14 11:42] LABS: Anion Gap 7 (5-15); Blood Urea Nitrogen 13 mg/dL (7-18); Carbon Dioxide 30 mmol/L (21-32); Chloride 103 mmol/L (98-107); Glucose 107 mg/dL (74-106)
[2022-07-14 11:43] LABS: BUN/Creatinine Ratio 17.8; GFR African American 106 mL/min; GFR Non-African American 88 mL/min
[2022-07-14 11:44] LABS: Alanine Aminotransferase 146 U/L (13-56); Albumin 3.8 g/dL (3.4-5.0); Alkaline Phosphatase 175 U/L (45-117); Aspartate Aminotransferase 91 U/L (15-37); Bilirubin, Total 0.7 mg/dL (0.2-1.0); Calcium 9.2 mg/dL (8.5-10.1); Total Protein 7.9 g/dL (6.4-8.2)
[2022-07-14 12:47] LABS: Urine Bacteria NONE SEEN /hpf (None Seen); Urine Blood 3+ /uL (Negative); Urine Mucus FEW (None Seen); Urine Specific Gravity 1.018 (1.001-1.035); Urine WBC 384 /hpf (0 - 5); Urine WBC Clumps PRESENT /hpf (None Seen)
[2022-07-14] MEDS ORDERED: cefTRIAXone 1GM/50ML D5W 50 ML IV ONE (13:15)
[2022-07-14] MEDS ORDERED: MORPHINE SULFATE 4 MG/ML SYR/VIAL IV ONE (14:00)
[2022-07-14] MEDS ORDERED: KETOROLAC TROMETH 30 MG/ML 1ML VIAL IV PRN (14:15)
[2022-07-14] MEDS ORDERED: NITROGLYCERIN 0.4 MG SL TAB SL PRN (14:15)
[2022-07-14] MEDS ORDERED: MORPHINE SULFATE INJ 2 MG/ml SYRG IV PRN (14:15)
[2022-07-14] MEDS ORDERED: ACETAMINOPHEN 325 MG TAB PO PRN (14:15)
[2022-07-14] MEDS: SODIUM CHLORIDE 0.9% 1,000 ML IV SCH ×2 (14:25→22:50)
[2022-07-14] MEDS: TAMSULOSIN HYDROCHLORIDE 0.4 MG CAP PO SCH (15:06)
[2022-07-14] MEDS: ONDANSETRON HCL 4 MG/2 ML VIAL IV PRN ×2 (18:10→22:11)
[2022-07-14] MEDS: MORPHINE SULFATE INJ 2 MG/ml SYRG IV PRN ×2 (18:11→22:12)
[2022-07-15] MEDS: KETOROLAC TROMETH 30 MG/ML 1ML VIAL IV PRN ×2 (01:41→10:51)
[2022-07-15] MEDS: SODIUM CHLORIDE 0.9% 1,000 ML IV SCH ×2 (01:41→17:20)
[2022-07-15] MEDS: ONDANSETRON HCL 4 MG/2 ML VIAL IV PRN ×3 (06:24→19:56)
[2022-07-15] MEDS: MORPHINE SULFATE INJ 2 MG/ml SYRG IV PRN (06:26)
[2022-07-15 06:29] LABS: Basophils # (auto) 0 10 ^3/uL (0-0.2); Basophils % (auto) 0.3 % (0.0-2.0); Eosinophils # (auto) 0 10 ^3/uL (0-0.8); Eosinophils % (auto) 0.6 % (0.0-7.0); Hematocrit 37.6 % (36.0-46.0); Hemoglobin 12.4 g/dL (12.2-16.2); Lymphocytes # (auto) 1.8 10 ^3/uL (0.4-5.4); Lymphocytes % (auto) 26.4 % (10.0-50.0); Mean Corpuscular Hemoglobin 28.2 pg (28.0-32.0); Mean Corpuscular Volume 85.6 fL (80.0-100.0); Monocytes # (auto) 0.7 10 ^3/uL (0-1.3); Neutrophils # (auto) 4.3 10 ^3/uL (1.6-8.6); Neutrophils % (auto) 62.7 % (37.0-80.0); Red Blood Cells 4.39 10^6/uL (4.0-5.20); Red Cell Distribution Width 14.4 % (11.8-14.3); White Blood Cell 6.8 10^3/uL (4.4-10.8)
[2022-07-15 06:38] LABS: Potassium 4.1 mmol/L (3.5-5.1)
[2022-07-15 06:44] LABS: Albumin 3.1 g/dL (3.4-5.0); BUN/Creatinine Ratio 15.3; Bilirubin, Total 0.5 mg/dL (0.2-1.0); Calcium 8.1 mg/dL (8.5-10.1); Total Protein 6.5 g/dL (6.4-8.2)
[2022-07-15 09:10] VITALS: BP 126/79
[2022-07-15] MEDS: cefTRIAXone 1GM/50ML D5W 50 ML IV SCH (09:43)
[2022-07-15] MEDS: TAMSULOSIN HYDROCHLORIDE 0.4 MG CAP PO SCH (09:43)
[2022-07-15] MEDS ORDERED: MANNITOL FTV 25% 12.5 GM/50 ML 50 ML IV ONE (11:00)
[2022-07-15 12:00] VITALS: BP 121/80
[2022-07-15] MEDS: HYDROcodone-ACET 5/325MG TAB PO PRN ×2 (12:20→19:56)
[2022-07-15 16:00] VITALS: BP 130/78
[2022-07-15] MEDS: PSEUDOEPHEDRINE HCL 30 MG TAB PO PRN ×2 (17:19→22:19)
[2022-07-15 22:00] VITALS: BP 140/82
[2022-07-16] MEDS: HYDROcodone-ACET 5/325MG TAB PO PRN ×2 (01:38→21:14)
[2022-07-16] MEDS: ONDANSETRON HCL 4 MG/2 ML VIAL IV PRN ×3 (01:38→21:14)
[2022-07-16] MEDS: SODIUM CHLORIDE 0.9% 1,000 ML IV SCH ×4 (01:48→23:56)
[2022-07-16] MEDS: PSEUDOEPHEDRINE HCL 30 MG TAB PO PRN ×3 (02:34→22:26)
[2022-07-16 05:00] VITALS: BP_SYST 120; BP_SYST 145; BP_DIAS 78; BP_DIAS 91
[2022-07-16 08:00] VITALS: BP 132/88
[2022-07-16] MEDS: KETOROLAC TROMETH 30 MG/ML 1ML VIAL IV PRN (09:14)
[2022-07-16] MEDS: cefTRIAXone 1GM/50ML D5W 50 ML IV SCH (10:07)
[2022-07-16] MEDS: TAMSULOSIN HYDROCHLORIDE 0.4 MG CAP PO SCH (10:07)
[2022-07-16] MEDS ORDERED: LEVOTHYROXINE SODIUM 25 MCG TAB PO ONE (11:15)
[2022-07-16] MEDS ORDERED: amLODIPine BESYLATE 5 MG TAB PO ONE (11:15)
[2022-07-16] MEDS ORDERED: PROPRANOLOL HCL 20 MG TAB PO ONE ×2 (11:30→12:00)
[2022-07-16 12:00] VITALS: BP 136/76
[2022-07-16] MEDS ORDERED: LEVOTHYROXINE SODIUM 88 MCG TAB PO ONE (12:00)
[2022-07-16] MEDS: MORPHINE SULFATE INJ 2 MG/ml SYRG IV PRN (14:34)
[2022-07-16 16:00] VITALS: BP 128/62
[2022-07-16] MEDS: metFORMIN HYDROCHLORIDE 500 MG TAB PO SCH (17:55)
[2022-07-16] MEDS: LORATADINE 10 MG TAB PO SCH (17:55)
[2022-07-16 20:00] VITALS: BP 141/88
[2022-07-16] MEDS: AMOXICILLIN/CLAVULAN 500 MG TAB PO SCH (20:53)
[2022-07-16] MEDS: FLUTICASONE PROP NASAL SPR 0.05 % (50MCG) 16GM EACHNOSTRI SCH (20:53)
[2022-07-17] MEDS: HYDROcodone-ACET 5/325MG TAB PO PRN (02:40)
[2022-07-17] MEDS: ONDANSETRON HCL 4 MG/2 ML VIAL IV PRN ×3 (02:40→23:43)
[2022-07-17] MEDS: PSEUDOEPHEDRINE HCL 30 MG TAB PO PRN ×2 (02:44→18:27)
[2022-07-17] MEDS: LEVOTHYROXINE SODIUM 88 MCG TAB PO SCH (06:31)
[2022-07-17] MEDS: AMOXICILLIN/CLAVULAN 500 MG TAB PO SCH ×3 (06:31→21:08)
[2022-07-17] MEDS: SODIUM CHLORIDE 0.9% 1,000 ML IV SCH ×3 (06:38→21:08)
[2022-07-17] MEDS: metFORMIN HYDROCHLORIDE 500 MG TAB PO SCH ×2 (08:36→18:27)
[2022-07-17] MEDS: PROPRANOLOL HCL 20 MG TAB PO SCH (08:37)
[2022-07-17] MEDS: KETOROLAC TROMETH 30 MG/ML 1ML VIAL IV PRN ×2 (08:47→23:43)
[2022-07-17] MEDS: FLUTICASONE PROP NASAL SPR 0.05 % (50MCG) 16GM EACHNOSTRI SCH ×2 (08:50→21:08)
[2022-07-17] MEDS: TAMSULOSIN HYDROCHLORIDE 0.4 MG CAP PO SCH (08:51)
[2022-07-17] MEDS: LORATADINE 10 MG TAB PO SCH (08:51)
[2022-07-17] MEDS: amLODIPine BESYLATE 5 MG TAB PO SCH (08:54)
[2022-07-17 09:00] VITALS: BP 148/92
[2022-07-17 12:57] VITALS: BP 129/76
[2022-07-17] MEDS: MORPHINE SULFATE INJ 2 MG/ml SYRG IV PRN (15:15)
[2022-07-17 17:00] VITALS: BP 133/77
[2022-07-17 21:47] VITALS: BP 139/81
[2022-07-18 05:04] VITALS: BP 136/78
[2022-07-18] MEDS: SODIUM CHLORIDE 0.9% 1,000 ML IV SCH (05:26)
[2022-07-18] MEDS: AMOXICILLIN/CLAVULAN 500 MG TAB PO SCH (06:36)
[2022-07-18] MEDS: LEVOTHYROXINE SODIUM 88 MCG TAB PO SCH (06:37)
[2022-07-18 09:00] VITALS: BP 140/85
[2022-07-18] MEDS: KETOROLAC TROMETH 30 MG/ML 1ML VIAL IV PRN (09:04)
[2022-07-18] MEDS: metFORMIN HYDROCHLORIDE 500 MG TAB PO SCH (09:04)
[2022-07-18] MEDS: TAMSULOSIN HYDROCHLORIDE 0.4 MG CAP PO SCH (09:33)
[2022-07-18] MEDS: amLODIPine BESYLATE 5 MG TAB PO SCH (09:33)
[2022-07-18] MEDS: PROPRANOLOL HCL 20 MG TAB PO SCH (09:34)
[2022-07-18] MEDS: FLUTICASONE PROP NASAL SPR 0.05 % (50MCG) 16GM EACHNOSTRI SCH (10:15)
[2022-07-18] MEDS ORDERED: TAM04C PO (11:24)
[2022-07-18] MEDS ORDERED: HYDR-4902 PO (11:24)
[2022-07-18] MEDS ORDERED: PSEUDOEPHEDRINE HCL 30 MG TAB PO PRN (11:30)
[2022-07-18] MEDS ORDERED: ONDA-144 PO (11:39)
[2022-07-18 11:57] VITALS: BP 140/85
[2022-07-18] MEDS: PSEUDOEPHEDRINE HCL 30 MG TAB PO PRN (12:05)
[2022-07-18 12:46] VITALS: BP 131/75
== END 2022-07-18 12:00 | disposition home or self-care (01) | DRG 463 ==
LOC: ER 10:49 → TELE 14:10 → TELE-WESTW 07-15 08:10
PROVIDERS: ADMIT Nurse Practitioner; ATTEND Nurse Practitioner
DX: N13.6 Pyonephrosis (principal); K76.0 Fatty (change of) liver, not elsewhere classified; E03.9 Hypothyroidism, unspecified; N20.2 Calculus of kidney with calculus of ureter; E11.9 Type 2 diabetes mellitus without complications; Z20.822 Contact with and (suspected) exposure to COVID-19; E78.5 Hyperlipidemia, unspecified; I10 Essential (primary) hypertension; Z82.49 Family history of ischemic heart disease and other diseases of the circulatory system; Z83.3 Family history of diabetes mellitus; Z90.710 Acquired absence of both cervix and uterus
CPT/HCPCS: 36415; 74018; 74176; 76775; 80053; 81001; 82962; 85025; 87086; 87426; 96365; 96375; G0378; J0696; J1885; J2405

== ENCOUNTER 2022-11-01 09:42 | Emergency (ER) | payer MEDICAID ==
[~2022-11-01] VITALS: Ht 167.6 cm; Wt 78.3 kg
[~2022-11-01 09:42] MED LIST changes: +HYDR-4902 PO; +ONDA-144 PO; +TAM04C PO
[2022-11-01 10:37] VITALS: BP 131/76
[2022-11-01] MEDS ORDERED: KETOROLAC TROMETH 30 MG/ML 1ML VIAL IM ONE (11:15)
[2022-11-01] MEDS ORDERED: LIDO5PAD8 EX (12:32)
[2022-11-01] MEDS ORDERED: CYCL-839 PO (12:32)
[2022-11-01] MEDS ORDERED: IBUP600T28 PO ×2 (12:34)
[2022-11-01] MEDS ORDERED: ONDANSETRON ODT 4 MG TAB PO ONE (12:45)
[2022-11-01] MEDS ORDERED: HYDROcodone-ACET 5/325MG TAB PO ONE (12:45)
== END 2022-11-01 12:49 | disposition home or self-care (01) ==
LOC: ER 09:42
DX: S39.012A Strain of muscle, fascia and tendon of lower back, initial encounter (principal); E11.9 Type 2 diabetes mellitus without complications; E78.5 Hyperlipidemia, unspecified; I10 Essential (primary) hypertension; Z79.899 Other long term (current) drug therapy; Z90.710 Acquired absence of both cervix and uterus; Z90.89 Acquired absence of other organs; X50.0XXA Overexertion from strenuous movement or load, initial encounter; Y93.89 Activity, other specified; Y92.89 Other specified places as the place of occurrence of the external cause; Y99.8 Other external cause status
CPT/HCPCS: 72131; 96372; 99285; J1885

== ENCOUNTER 2025-03-03 19:55 | Emergency (ER) | payer MEDICAID ==
[~2025-03-03] VITALS: Ht 167.6 cm; Wt 83.0 kg
[~2025-03-03 19:55] MED LIST changes: -AMLO-489 PO; +AMLO1TAB22 PO; +CHOL4POW33 PO; -CHOL4POW4 PO; +CYCL-839 PO; +LIDO5PAD12 EX; -TAM04C PO; +TAMS-35 PO
--- NOTE | 2025-03-03 22:33 | ED.PDOC ---
Musculoskeletal HPI Comments 59-year-old female who chief complaint of fall injury Patient states that she had a fall in while hiking and states she slipped and fell backwards from standing position and fell on her right leg and twisted her right ankle during fall Patient states she did not lose consciousness and patient denies hitting her head Patient states some bleeding on her right leg and family member did apply a dressing to the right leg Patient now in the ED otherwise denies any fever chills shortness of breath chest pain associated symptoms Patient in the ED has noted blood pressure of 146/87 but otherwise stable vital including heart rate 90 respiratory rate 20 temperature 98.3 F and O2 saturation 95% on room air Past medical history: Diabetes hyperlipidemia hypertension hypothyroidism spinal stenosis nerve pain Past surgical history: Hysterectomy, tonsillectomy Allergies: Denies medications; Unknown Social history: Denies ETOH use, denies tobacco use, denies drug use HPI: Poor Historian. Past Medical History: Past Surgical History: REVIEW OF SYSTEMS: CONSTITUTIONAL: Denies acute: fever, diaphoresis, chills, generalized weakness. HEAD: Denies acute: headache, photophobia Eyes: Denies acute: Double vision, vision loss, eye pain, eye discharge. EARS: Denies acute: tinnitus, hearing loss, ear discharge, ear pain, THROAT: Denies acute: sore throat, swelling, difficulty swallowing , pain with swallowing, change in voice. NECK: Denies acute: neck pain, neck swelling, stiff neck. HEART: Denies acute : chest pain, palpitations, LUNGS: Denies acute: SOB, wheezing, cough, hemoptysis ABDOMEN: Denies acute: abdominal pain, Nausea, Vomiting, diarrhea, melena , hematemesis, hematochezia SKIN: Denies acute: rash, redness, lesions, itchiness. EXTREMITIES: Denies acute: calf pain, numbness, tingling, weakness, Denies acute: Low back pain. Neuro: Denies acute: focal neurological deficit, motor or sensory focal neurological deficit, tremors, seizure like activity, confusion, dizziness, change in mental status, loss of bowel or bladder function, cauda equina like symptoms. : Denies acute: dysuria, hematuria, flank pain, increase in urinary frequency. PSYCH: Denies acute: hallucination, suicidal ideation, homicidal ideation. FEMALE: Denies acute: abnormal vaginal bleeding, foul odor, unusual discharge. PHYSICAL EXAM: General: ----mild----acute distress, awake and alert. Head: normocephalic, atraumatic. Neck: supple, trachea is midline, no swelling. Throat: Normal phonation. Eyes:, no erythema, no purulent discharge, no proptosis, no icterus. Heart: regular rate, regular rhythm, no significant murmur appreciated. Lungs: no apparent respiratory distress, Able to speak in full sentences. No wheezing, no rhonchi, no crackles. No stridors Clear to auscultation bilaterally. Abdomen: non tender to palpation, non distended, soft, no guarding, no rebound, + bowel sounds. Neuro: Awake, Alert, oriented to name, self, situation, follows commands GCS=15. Speech is normal. Skin: no petechia, no purpura, no cyanosis, non-pale, not jaundice. Lower extremities: --no - Pitting edema no deformity, , no calf TTP. Minimal swelling at the right lateral malleoli and dorsum of the right foot. Tenderness to palpation in these two areas as well. Pain with inversion of the right foot . Patient is neurovascularly intact in the affected extremity. Noted right anterior peres skin abrasions. Makes eye contact. moves all four extremities. Face: no apparent facial droop. Ambulating in the ED independently. Pedal pulses are palpable. ED COURSE: DISCLAIMER: This medical document was created using an electronic medical record system with voice recognition software and computerized dictation system. Although this document has been carefully reviewed, there might still be some phonetic and typographical errors. Occasional wrong-word or "sound-alike" substitutions may have occurred due to the inherent limitations of voice recognition software. These areas are purely typographical due to imperfections of the software programs and do not reflect any compromise in the patient's medical care. Please read the chart carefully and recognize, using context, where these substitutions have occurred. Chief Complaint: Fall Injury Time Seen by MD: 21:21 Primary Care Provider: [facility] Reviewed Notes: Allergies Allergies: Coded Allergies: NO KNOWN ALLERGIES (Unverified , 09/07/17) Home Meds Active Scripts Lidocaine (Lidocaine Patch 5%) 5 % Pad, 1 APPLIC EX DAILY PRN, #30 PATCH 0 Refills Prov:VIRIDIANA MIRAMONTES SET UP MECHANIC HEADING MACHINES 11/01/22 Cyclobenzaprine Hcl (Cyclobenzaprine Hcl) 10 Mg Tab, 10 MG PO TID, #12 TAB 0 Refills Prov:VIRIDIANA MIRAMONTES SET UP MECHANIC HEADING MACHINES 11/01/22 Ondansetron (Zofran) 4 Mg Tab, 1 TAB PO Q6HR, #20 TAB Prov:JOAN MCCOY SUPERVISOR LEAD REFINERY 07/18/22 Hydrocodone-Acetaminophen (Hydrocodone Bitartrate/AC 5-325 mg) 1 Tab Tab, 1 TAB PO Q6HPRN PRN for 5 Days, #20 TAB Prov:JOAN MCCOY SUPERVISOR LEAD REFINERY 07/18/22 Tamsulosin Hcl (Flomax) 0.4 Mg Cap, 0.4 MG PO DAILY for 30 Days, #30 CAP Prov:JOAN MCCOY SUPERVISOR LEAD REFINERY 07/18/22 Reported Medications Cholestyramine (Cholestyramine) 4 Gm Pow, 4 GM PO, POW 04/02/21 Metformin Hydrochloride (Metformin Hcl) 500 Mg Tab, 500 MG PO BID for 30 Days, MG 04/02/21 Propranolol Hcl (Inderal La) 80 Mg Cap, 1 CAP PO DAILY, #90 CAP 1 Refill 04/02/21 Amlodipine Besylate (Amlodipine Besylate) 5 Mg Tab, 10 MG PO DAILY for 30 Days, MG 04/02/21 Levothyroxine Sodium (Levothyroxine Sodium) 25 Mcg Tab, 0.88 MG PO QAM, MCG 04/02/21 Information Source: Patient Mode of Arrival: Ambulatory Past Medical History PAST MEDICAL HISTORY: DM, High Lipids, HTN, Thyroid Surgical History: Hysterectomy, Tonsillectomy 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 Was a procedure done?: No Differential Diagnosis EXT Differential Diagnosis: Cellulitis, CHF, Deep Vein Thrombosis, Compartment Syndrome, Fracture, Sprain, Dislocation, Gout, DJD, Contusion, Strain, Septic, Neurovascular injury, Arthritis, Bursitis X-Ray, Labs, Meds, VS Vital Signs Date Time Temp Pulse Resp B/P (MAP) Pulse Ox O2 Delivery O2 Flow Rate FiO2 03/04/25 00:34 Room Air* 0 21 03/04/25 00:34 98.0 79 20 140/89 (106) 95 98.0 03/03/25 19:56 98.3 90 20 146/89 95 98.3 Current Medications Medications (Trade) Dose Ordered Sig/Gael Route Start Time Stop Time Status Last Admin Ketorolac Tromethamine (Toradol Injection) 30 mg ONCE ONCE IM 03/03/25 23:30 03/03/25 23:31 DC 03/04/25 00:[address] [address] Ph: [phone] DIAGNOSTIC IMAGING Diagnostic Imaging Report : [id number] Signed PATIENT: YOLY TY ACCT: [id number] UNIT: [id number] : 1965 LOC: ER ROOM / BED: / AGE / SEX: 59 / F ADM STATUS: REG ER SERVICE 31 ORDERING PHYSICIAN: ISAURO PAREKH DO PROCEDURE(s): RANKL - R ANKLE 3 VIEW REASON: fall, injury ORDER NUMBER(s): [id number], ACCESSION NUMBER(s): [id number] CLINICAL INDICATION: fall, injury TECHNIQUE: 3 views XY R ANKLE 3 VIEW Comparison: None FINDINGS: No acute fracture or joint malalignment. Normal osseous mineralization. No significant degenerative change. Calcaneal enthesophytes. Circumferential subcutaneous edema most pronounced laterally. IMPRESSION: 1. Soft tissue swelling without acute osseous finding of the right ankle. ATED BY: ESPERANZA PAUL MD DICTATED DATE/TIME: 03/03/252256 SIGNED BY: ESPERANZA PAUL MD SIGNED DATE/TIME: 03/03/252256 CC: [address] [address] Ph: [phone] DIAGNOSTIC IMAGING Diagnostic Imaging Report : [id number] Signed PATIENT: YOLY TY ACCT: [id number] UNIT: [id number] : 1965 LOC: ER ROOM / BED: / AGE / SEX: 59 / F ADM STATUS: REG ER SERVICE ORDERING PHYSICIAN: ISAURO PAREKH DO PROCEDURE(s): RLDVT - RT Lower DVT REASON: injury, pain, fall ORDER NUMBER(s): [id number], ACCESSION NUMBER(s): [id number] CLINICAL HISTORY: injury, pain, fall TECHNIQUE: Color and duplex doppler imagine of the right lower extremity veins was performed. Vessel compression if possible was also performed. COMPARISON: XY R ANKLE 3 VIEW on DOS: 03/03/25 FINDINGS: Right common femoral vein: Normal compressibility and flow. Right superficial femoral vein: Normal compressibility and flow. Right popliteal vein: Normal compressibility and flow. Proximal calf veins are normally compressible. IMPRESSION: NO SONOGRAPHIC EVIDENCE FOR DEEP VENOUS THROMBOSIS IN THE RIGHT LOWER EXTREMITY VEINS. ATED BY: BUTCH CHAVEZ MD DICTATED DATE/TIME: 03/03/252299 SIGNED BY: BUTCH CHAVEZ MD SIGNED DATE/TIME: 03/03/252299 CC: Time of 1ST Reevaluation: 23:24 Reevaluation 1ST: Unchanged Patient Education/Counseling: Diagnosis, Treatment Family Education/Counseling: No Family Present Comments MDM: patient presented with the above HPI.---leg pain status post fall---workup was initiated. patient was found with the above mentioned diagnosis. the following medications were ordered: please refer to order lists of meds and tests obtained by myself Dr. Parekh. Patient ED course and VS have been stabilized. Patient has been reassessed in the ED and remained in a stable condition. Pertinent incidental findings were discussed with the patient and/or family. Patient/family voices understanding and is agreeable with plan. Patient has been observed in the ED adequate length of time to insure improvement/stability. Escalation of care considered: Consideration of escalation to observation or admission Huey wrap was applied. DVT and fracture and dislocation was ruled out. Patient was DISCHARGED home in a stable condition. All the reports of any imaging studies that were ordered by myself were reviewed by myself. Departure 1 Departure Time of Disposition: 23:27 Impression: Primary Impression: Right ankle sprain Additional Impressions: Skin abrasion Accident due to mechanical fall without injury Disposition: 01 HOME / SELF CARE / HOMELESS Condition: Stable Additional Instructions: Additional instructions: Please read all instructions provided in this packet carefully. You MUST follow-up with your primary care/family doctor in 1 to 2 days. If you are unable to see your primary care/family doctor, please return to our emergency room for re-assessment and re-evaluation in 1 to 2 days. Return to the emergency room here in our facility or to the nearest ER [facility] if your symptoms change or worsen. CONSULTATIONS: you MUST Follow-up for consultation as soon as possible with: -orthopedic doctor in 1-2 days. Please call for appointment. You MUST call the consultants office yourself to make an appointment. You may need to arrange that through your insurance and/or your primary/family doctor. If you are unable to see the air quality consultant in 1 to 2 days, you must return to our emergency room (or any other ER of your choice) for re-assessment and re- evaluation. Adequate fluid hydration. Although you have been discharged from the Emergency Department, this does not mean that you have a "clean bill of health". No definitive diagnosis for your symptoms has been made today. It is possible that you are in the process of developing a serious illness. This is why you must return to the ED without fail if any new or worsening symptoms develop. Leg elevation. Use Tylenol ibuprofen as needed for pain control as instructed. Apply [id number] triple ointment antibiotics a keep the wound covered. Below is a copy of your radiological report for follow up: [place] [address] Ph: [phone] DIAGNOSTIC IMAGING Diagnostic Imaging Report : [id number] Signed PATIENT: YOLY TY ACCT: [id number] UNIT: [id number] : 1965 LOC: ER ROOM / BED: / AGE / SEX: 59 / F ADM STATUS: REG ER SERVICE 31 ORDERING PHYSICIAN: ISAURO PAREKH DO PROCEDURE(s): RANKL - R ANKLE 3 VIEW REASON: fall, injury ORDER NUMBER(s): [id number], ACCESSION NUMBER(s): [id number] CLINICAL INDICATION: fall, injury TECHNIQUE: 3 views XY R ANKLE 3 VIEW Comparison: None FINDINGS: No acute fracture or joint malalignment. Normal osseous mineralization. No significant degenerative change. Calcaneal enthesophytes. Circumferential subcutaneous edema most pronounced laterally. IMPRESSION: 1. Soft tissue swelling without acute osseous finding of the right ankle. ATED BY: ESPERANZA PAUL MD DICTATED DATE/TIME: 03/03/252256 SIGNED BY: ESPERANZA PAUL MD SIGNED DATE/TIME: 03/03/252256 CC: [place] [address] Ph: [phone] DIAGNOSTIC IMAGING Diagnostic Imaging Report : [id number] Signed PATIENT: YOLY TY ACCT: [id number] UNIT: [id number] : 1965 LOC: ER ROOM / BED: / AGE / SEX: 59 / F ADM STATUS: REG ER SERVICE 32 ORDERING PHYSICIAN: ISAURO PAREKH DO PROCEDURE(s): RLDVT - RT Lower DVT REASON: injury, pain, fall ORDER NUMBER(s): [id number], ACCESSION NUMBER(s): [id number] CLINICAL HISTORY: injury, pain, fall TECHNIQUE: Color and duplex doppler imagine of the right lower extremity veins was performed. Vessel compression if possible was also performed. COMPARISON: XY R ANKLE 3 VIEW on DOS: 03/03/25 FINDINGS: Right common femoral vein: Normal compressibility and flow. Right superficial femoral vein: Normal compressibility and flow. Right popliteal vein: Normal compressibility and flow. Proximal calf veins are normally compressible. IMPRESSION: NO SONOGRAPHIC EVIDENCE FOR DEEP VENOUS THROMBOSIS IN THE RIGHT LOWER EXTREMITY VEINS. ATED BY: BUTCH CHAVEZ MD DICTATED DATE/TIME: 03/03/252299 SIGNED BY: BUTCH CHAVEZ MD SIGNED DATE/TIME: 03/03/252299 CC: Discharged With: Self Critical Care Note Critical Care Time?: No I personally scribed for SIAURO PAREKH DO ([email or web address]) on 03/03/25 at 22:33. Electronically submitted by Dallas Haskins (PERLA). I personally scribed for ISAURO PAREKH DO ([email or web address]) on 03/03/25 at 23:10. Electronically submitted by Dallas Haskins (PERLA). ISAURO PAREKH DO Mar 03, 2025 22:33
--- NOTE | 2025-03-03 22:59 | DVH ---
CLINICAL INDICATION: fall, injury TECHNIQUE: 3 views XY R ANKLE 3 VIEW Comparison: None FINDINGS: No acute fracture or joint malalignment. Normal osseous mineralization. No significant degenerative change. Calcaneal enthesophytes. Circumferential subcutaneous edema most pronounced laterally. IMPRESSION: 1. Soft tissue swelling without acute osseous finding of the right ankle.
--- NOTE | 2025-03-03 23:02 | DVH ---
CLINICAL HISTORY: injury, pain, fall TECHNIQUE: Color and duplex doppler imagine of the right lower extremity veins was performed. Vessel compression if possible was also performed. COMPARISON: XY R ANKLE 3 VIEW on DOS: 03/03/25 FINDINGS: Right common femoral vein: Normal compressibility and flow. Right superficial femoral vein: Normal compressibility and flow. Right popliteal vein: Normal compressibility and flow. Proximal calf veins are normally compressible. IMPRESSION: NO SONOGRAPHIC EVIDENCE FOR DEEP VENOUS THROMBOSIS IN THE RIGHT LOWER EXTREMITY VEINS.
[2025-03-04 00:34] VITALS: BP 140/89; PULSE 79; RESP 20; TEMP 98; O2SAT 95
[2025-03-04] MEDS: KETOROLAC TROMETH 30 MG/ML 1ML VIAL IM ONE (00:38)
== END 2025-03-04 00:39 | disposition home or self-care (01) ==
LOC: ER 19:55
DX: S93.401A Sprain of unspecified ligament of right ankle, initial encounter (principal); T14.8XXA Other injury of unspecified body region, initial encounter; E11.9 Type 2 diabetes mellitus without complications; Z79.899 Other long term (current) drug therapy; W01.0XXA Fall on same level from slipping, tripping and stumbling without subsequent striking against object, initial encounter; Y93.89 Activity, other specified; Y92.89 Other specified places as the place of occurrence of the external cause; Y99.8 Other external cause status
CPT/HCPCS: 73610; 93971; 96372; 99285; J1885